=== PATIENT | female | born 1965 | race Caucasian/White ===

== ENCOUNTER → 2017-11-15 | Outpatient (CLI) | payer OTHER ==
[~2017-11-15] VITALS: Ht 154.9 cm; Wt 120.2 kg
[~2017-11-15] MED LIST: ADDERALL XR 2525 MG PO; ADDERALL XR 3030 MG PO; ADDERALL5 MG PO; ADVAIR HFA120 INHALA IH; ADVIL200 MG PO; AMPHETAMINE SALT5 MG PO; DAY-TIME COLD-1 EACH PO; DELSYM30 MG/5 M1 PO; DOK PLUS TABLE1 EACH PO; ENDOCET 5-3251 EACH PO; FAMOTIDINE20 MG PO; GLUCOPHAGE500 MG PO; JARDIANCE10 MG PO; LOVENOX40 MG/0.4 SC; MOTRIN IB200 MG PO; NIGHT TIME COL1 EAC1 PO; PANTOPRAZOLE SO40 MG PO; PREDNISONE50 MG PO; THERAGRAN1 TABLET PO; TRULICITY0.75 MG/0. SC; ZESTRIL2.5 MG PO; ZOCOR20 MG PO
[2017-11-15 12:43] LABS: CHLORIDE 105 MEQ/L (99-109); CREATININE 0.6 MG/DL (0.6-1.3); GFR ESTIMATE (CALCULATED) > 59 mL/min/; GLUCOSE 149 mg/dL (70-99); SODIUM 139 MEQ/L (136-147); UREA NITROGEN (BUN) 12 mg/dL (9-23)
== END | disposition home or self-care (01) ==
LOC: AMB 10-15 11:00
PROVIDERS: Internal Medicine Gastroenterology
PROC: 0DJD8ZZ Inspection of Lower Intestinal Tract, Via Natural or Artificial Opening Endoscopic (ICD-10-PCS; principal; 2017-11-15)
DX: Z12.11 Encounter for screening for malignant neoplasm of colon (principal); K57.30 Diverticulosis of large intestine without perforation or abscess without bleeding; Z53.09 Procedure and treatment not carried out because of other contraindication
CPT/HCPCS: 80048; 82948; 93005; J2250

== ENCOUNTER 2017-12-04 22:36 | Emergency (ER) | payer OTHER ==
[~2017-12-04] VITALS: Ht 154.9 cm; Wt 127.1 kg
[2017-12-05 02:42] LABS: HEMOGLOBIN 12.7 G/DL (11.9-15.5); MCH 29.3 PG (29.0-34.0); MCHC 34.3 G/DL (30.0-36.0); MCV 85.3 FL (83-99); PLATELET COUNT 211 K/uL (156-360); RBC DIS.WIDTH-CV 12.9 % (11.8-14.6); RBC DIS.WIDTH-SD 39.7 % (39-53); RED BLOOD COUNT 4.34 M/uL (3.80-5.20)
[2017-12-05 02:50] LABS: ALBUMIN 4.2 g/dL (3.2-4.8); CHLORIDE 107 mEq/L (99-109); POTASSIUM 3.9 mEq/L (3.7-5.4); SODIUM 139 mEq/L (136-147)
[2017-12-05 02:52] LABS: GLUCOSE 146 mg/dL (70-99); TOTAL PROTEIN 6.9 g/dL (6.4-8.3)
[2017-12-05 02:54] LABS: TOTAL BILIRUBIN 0.4 mg/dL (0.0-1.0)
[2017-12-05 02:56] LABS: ALKALINE PHOSPHATASE 93 IU/L (3-129); CREATININE 0.8 mg/dL (0.6-1.3); GFR ESTIMATE (CALCULATED) > 59 mL/min/
[2017-12-05 02:57] LABS: UREA NITROGEN (BUN) 19 mg/dL (9-23)
[2017-12-05 02:58] LABS: AST (GOT) 17 IU/L (2-34)
[2017-12-05 02:59] LABS: ALT (GPT) 24 IU/L (3-49)
[2017-12-05 03:03] LABS: TROP-I INTERPRETATION NEGATIVE; TROPONIN-I < 0.01 ng/mL (0.0-0.30)
[2017-12-05] MEDS ORDERED: ANTIVERT25 MG PO (03:13)
[2017-12-05 03:18] VITALS: BP 159/86
== END 2017-12-05 03:19 | disposition home or self-care (01) ==
LOC: EME 22:36
PROVIDERS: Physician Assistant
DX: R42 Dizziness and giddiness (principal); I10 Essential (primary) hypertension; J45.909 Unspecified asthma, uncomplicated; G47.30 Sleep apnea, unspecified; Z88.8 Allergy status to other drugs, medicaments and biological substances
CPT/HCPCS: 80053; 84484; 85027; 93005; 99281; 99284